=== PATIENT | female | born 1935 | race Caucasian/White ===

== ENCOUNTER 2017-04-11 06:14 | Inpatient (IN) | payer MEDICARE, OTHER ==
[~2017-04-11] VITALS: Ht 167.6 cm; Wt 78.9 kg
[~2017-04-11 06:14] MED LIST: ALBUTEROL2.5 MG/0.5 INH; AMITRIPTYLINE H10 M1 PO; ANUSOL-HC25 MG RECTAL; ARICEPT 5 MG TAB5 MG PO; ASPIR 8181 MG PO; ASPIRIN81 M2 PO; ATROVENT HFA14 GM INH; AVELOX400 MG PO; BENAZEPRIL HCL20 MG PO; BENAZEPRIL HCL40 MG PO; BENTYL 10 MG CA10 M1 PO; CALCIUM 500 +1 EAC5 PO; CALCIUM ASCORB500 MG PO; CALCIUM PO; CARDIZEM CD240 MG PO; CARVEDILOL12.5 MG PO; CARVEDILOL25 MG PO; CELEBREX 200 M200 M1 PO; CELEBREX400 MG PO; CELEXA10 MG PO; CELEXA20 MG PO; CENTRUM SILVER1 EAC4 PO; CLEOCIN HCL300 MG PO; COMBIVENT INH; CORTENEMA100 MG/60 RECTAL; DILAUDID 2 MG TA2 MG PO; DILAUDID 4 MG TA4 M1 PO; DILAUDID 4 MG TA4 MG PO; DUONEB 2.5-0.5 M3 ML INH; ENOXAPARIN40 MG/0.1 SUBQ; EVISTA PO; FOLIC ACID 1 MG1 MG PO; FOLIC ACID1 MG PO; FORTEO SUBQ; FORTICAL; GABAPENTIN300 MG PO; HYDROCHLOROTH12.5 M1 PO; HYDROCHLOROTHIA25 M2 PO; HYDROCODONE-AP1 EAC6 PO; HYDROXYZINE HCL25 M2 PO; KLOR-CON 1010 MEQ PO; LEVAQUIN 500 M500 M2 PO; LEVAQUIN 750 M750 MG PO; LIDOCAINE HCL 1% TOP; LOTENSIN40 MG PO; LOVASTAT40 PO; METAMUCIL1 EAC1 PO; MILK OF MA2400 MG/10 PO; MIRALAX17 GM PO; MS CONTIN15 MG PO; MULTIVITAMINS1 EAC7 PO; NAMENDA 10 MG T10 MG PO; NAMENDA PO; NAMENDA XR28 MG PO; NEURONTIN 300300 M1 PO; NEURONTIN 300M300 M2 PO; NITROFURANTOIN100 MG PO; ONDANSETRON HCL4 M2 PO; PACERONE 200 M200 M1 PO; PANTOPRAZOLE SO40 M1 PO; PERCOCET 5-3251 EACH PO; PRAVACHOL40 MG PO; PREDNISONE 10 M10 MG PO; PREVASTATIN; PROTONIX40 M1 PO; RANITIDINE HCL150 M1 PO; ROWASA4 GM/60 ML RECTAL; SENOKOT-S1 TA1 PO; TESSALON PERLE100 MG PO; TESSALON200 MG PO; TRAMADOL 50 MG50 MG PO; TUMS PO; TYLENOL EXTRA500 MG PO; TYLENOL325 MG PO; VITAMIN D-32000 UNIT PO; VITAMIN D1000 UNI1 PO; VITAMIN D2000 UNIT PO; VITAMIN D3400 UNIT PO; XARELTO15 MG PO; XARELTO20 MG PO; ZANTAC 150MG T150 MG PO; ZPAK PO
[2017-04-11 06:15] VITALS: BP 163/91
[2017-04-11 07:00] LABS: HEMATOCRIT 30.2 % (37.0-47.0); HEMOGLOBIN 9.9 gm/dL (12.0-15.0); MCH 28.9 pg (26.0-34.0); MCHC 32.6 g/dL (28.0-37.0); MCV 88.5 fL (80.0-100.0); MPV 8.6 fl. (7.2-11.1); NUCLEATED RBCS 0 /100WBC; PLATELET COUNT* 213 thou/uL (150-400); RBC 3.41 mil/uL (4.20-5.00); RDW-CV 14.7 % (10.5-14.5); WBC 19.8 thou/uL (4.0-11.0)
[2017-04-11 07:08] LABS: ANION GAP 6 mmol/L (7-16); BUN 24 mg/dL (7-18); CALCIUM 9.3 mg/dL (8.5-10.1); CHLORIDE 98 mmol/L (98-107); CO2 32 mmol/L (21-32); GLUCOSE 124 mg/dL (70-99); POTASSIUM 4.4 mmol/L (3.5-5.1); SODIUM 136 mmol/L (136-145)
[2017-04-11 07:15] LABS: ALBUMIN 3.3 g/dL (3.4-5.0); ALKALINE PHOSPHATASE 110 U/L (46-116); SGOT 20 U/L (15-37); SGPT 28 U/L (30-65); TOTAL BILIRUBIN 0.3 mg/dL (<0.1-1.0); TOTAL PROTEIN 6.6 g/dL (6.4-8.2); TROPONIN-I LEVEL <0.06 ng/mL (<0.06)
[2017-04-11 07:35] LABS: ABSOLUTE LYMPHOCYTES 0.6 thou/uL (0.8-5.3); ABSOLUTE MONOCYTES 0.6 thou/uL (0.0-1.2); ABSOLUTE NEUTROPHILS 18.6 thou/uL (1.6-8.1); METAMYELOCYTES 1 %; POLYCHROMASIA 1+
[2017-04-11 07:36] LABS: PLATELET ESTIMATE ADEQUATE
[2017-04-11 11:02] VITALS: BP 134/99
[2017-04-11 14:50] VITALS: BP 145/81
--- NOTE | 2017-04-11 16:00 | NUR ---
ASSUMED CARE OF PATIENT AT 1450 AFTER TRANSFERRED TO ROOM 107 FROM PACU S/P ORIF LEFT ANKLE. PATIENT IS AWAKE, ALERT, AND ORIENTED TO SELF, PLACE, AND SITUATION AT THIS TIME. DAUGHTERS AT BEDSIDE. ADMISSION DOCUMENTATION COMPLETED AND CHARTED. VITAL SIGNS STABLE. OXYGEN SATURATION WITHIN NORMAL LIMITS ON 3 LPM PER NASAL CANULA. PATIENT IS ON BEDREST AT THIS TIME. SCHUSTER CATHETER IN PLACE TO DEPENDENT DRAINAGE, DRAINING YELLOW URINE. CALL LIGHT IS WITHIN REACH AND EDUCATION ON HOW TO USE IT HAS BEEN GIVEN. BED ALARM IS ON. DENIES NEEDS AT THIS TIME. NURSING WILL CONTINUE TO MONITOR.
--- NOTE | 2017-04-11 17:08 | NUR ---
NO CHANGE IN PATIENT STATUS. HAVE NO GIVEN PRN MEDICATIONS AT THIS TIME. SCHUSTER INTACT. DENIES NEEDS AT THIS TIME. CALL LIGHT WITHIN REACH. NURSING WILL CONTINUE TO MONITOR.
[2017-04-11 20:20] VITALS: BP 127/79
[2017-04-12] VITALS (7 sets, daily range): BP systolic 130–153; BP diastolic 50–77
[2017-04-12 04:19] LABS: HEMATOCRIT 26.3 % (37.0-47.0); HEMOGLOBIN 8.1 gm/dL (12.0-15.0); MCH 27.3 pg (26.0-34.0); MCHC 30.8 g/dL (28.0-37.0); MCV 88.7 fL (80.0-100.0); MPV 9.1 fl. (7.2-11.1); RBC 2.97 mil/uL (4.20-5.00); WBC 17.2 thou/uL (4.0-11.0)
[2017-04-12 05:03] LABS: CALCIUM 8.5 mg/dL (8.5-10.1); CREATININE 1.1 mg/dL (0.6-1.3); MAGNESIUM 1.9 mg/dL (1.8-2.4)
--- NOTE | 2017-04-12 07:47 | NUR ---
PATIENT HAS RESTED THROUGHOUT THE NIGHT WITHOUT ANY COMPLAINTS. DOES NOT VERBALIZE PAIN. PATIENT IS ALERT TO SELF AND PLACE BUT IS CONFUSED AND FORGETFUL. PATIENT DOES HAVE HISTORY OF DEMENTIA. VSS ON 3L 02 VIA NASAL CANNULA. SCHUSTER TO DEPENDENT DRAINAGE WITH YELLOW URINE OUTPUT. SCHUSTER IS TO BE TAKEN OUT LATER TODAY. IV IN LEFT FOREARM-SL. FALL PRECAUTIONS IN PLACE. HOURLY ROUNDS MADE. WILL CONTINUE WITH PLAN OF CARE AND NURSING TO MONITOR.
--- NOTE | 2017-04-12 08:42 | NUR ---
ASSUMED CARE OF PT THIS AM AROUND 0700. REFER TO ASSESSMENT. PT NOTED TO HAVE AUDIBLE COARSE RESPIRATIONS THIS AM. PHYSICIAN NOTIFIED AND NEW ORDER OBTAINED FOR CHEST XRAY. IS PLACED AT BEDSIDE AND PT INSTRUCTED TO USE. DRESSING TO LLE C/D/I. NO OTHER CONCERNS AT THIS TIME. CLWR. WCTM.
[2017-04-12 10:36] LABS: URINE BILIRUBIN NEGATIVE (Negative); URINE BLOOD 2+ (Negative); URINE CLARITY CLEAR; URINE COLOR YELLOW; URINE GLUCOSE-RANDOM NEGATIVE (Negative); URINE KETONES NEGATIVE (Negative); URINE LEUKOCYTES-REFLEX 1+ (Negative); URINE NITRITE-REFLEX NEGATIVE (Negative); URINE PROTEIN NEGATIVE (Negative); URINE UROBILINOGEN 0.2 E.U./dl (0.2-1.0)
[2017-04-12 10:46] LABS: CASTS None Seen /LPF (None Seen); MUCUS 0-3 Light strn/LPF (None Seen); SQUAMOUS 0-3 Few /LPF (0-3); URINE RBC 3-10 Few /HPF (0-2); URINE WBC-REFLEX 6-15 Few /HPF (0-5)
[2017-04-12 10:47] LABS: CRYSTALS None Seen /LPF (None Seen)
--- NOTE | 2017-04-12 14:43 | NUR ---
CM ASSESSMENT: Pt is A&O. Resides at home with her dtr, Caryl. Pt is normally independent at home. Dtr does the cooking, cleaning and driving. Uses a walker for mobility. [facility] of [facility]. Hx of [facility] and [facility]. Pt's goal is to return home, but understands that she may need to go to skilled. Pt in agreement with CM speaking with dtr regarding disposition. Spoke with Caryl via phone. Dtr thinks that Pt will need skilled. Dtr's 1st choice is [facility], 2nd choice [facility]. Spoke with Karlo at [facility], anticipate that they will have an available bed on . Faxed referral.
--- NOTE | 2017-04-12 17:08 | NUR ---
PT PROGRESSING TOWARDS GOALS THIS SHIFT. PAIN MANAGED WITH ONE TAB PRN HYDROCODONE. CHEST XRAY OBTAINED FOR COARSE LUNG SOUNDS. NO OTHER CONCERNS AT THIS TIME. CLWR. WCTM.
--- NOTE | 2017-04-12 17:37 | EKG ---
[place] [address] ELECTROCARDIOGRAM REPORT Name: JUSTYN CASRTO Room: [address] ADM IN .R.#: [id number] Admission: 04/11/17 Attend Phys: Jacob Preciado MD Discharge: Date of : 37 Report #: [id number] THIS REPORT FOR: //name// [facility] ED Test Date: 2017-04-11 Test Time: 06:47:51 Pat Name: JUSTYN CASTRO Department: Room: [facility] Gender: F Media Reconciliation Specialist: MILI Rm : 1935 Requested By: Markus Herrera Order Number: [id number] MD: Fidel Harris Measurements Intervals [place] Rate: 79 P: 100 RI: 148 QRS: 38 QRSD: 113 T: 9 QT: 409 QTc: 469 Interpretive Statements Sinus rhythm Atrial premature complexes in couplets Incomplete right bundle branch block Nonspecific T abnormalities, lateral leads Compared to ECG 01/23/2017 01:39:50 T-wave abnormality now present Electronically Signed On 04-12-2017 17:36:55 XM1 TANK DRIVER by Fidel Harris [email or web address] <ELECTRONICALLY SIGNED> By: Fidel Harris MD, FACC 04/12/17 1736 0647 0647 Fidel Harris MD, FAC /EPI
--- NOTE | 2017-04-12 18:50 | NUR ---
PT NOTED TO HAVE SOME APHASIA AND CONFUSION THIS EVENING. IT IS KNOWN THAT PT HAS HX OF DEMENTIA. UNKNOWN IF PT HAS HX OF APHASIA. PHYSICIAN NOTIFIED AND MADE AWARE OF URINE CULTURE AND CXRAY THIS EVENING. PT STARTING ON IV ABTS. PT TO HAVE CT WITHOUT CONTRAST THIS EVENING. NO OTHER CONCERNS AT THIS TIME. CLWR. WCTM.
[2017-04-12 19:09] LABS: HEMATOCRIT 24.1 % (37.0-47.0); HEMOGLOBIN 7.8 gm/dL (12.0-15.0); MCH 28.6 pg (26.0-34.0); MCHC 32.4 g/dL (28.0-37.0); MCV 88.3 fL (80.0-100.0); MPV 8.6 fl. (7.2-11.1); RBC 2.73 mil/uL (4.20-5.00); WBC 18.1 thou/uL (4.0-11.0)
[2017-04-12 19:23] LABS: CALCIUM 8.6 mg/dL (8.5-10.1); POTASSIUM 5.8 mmol/L (3.5-5.1)
[2017-04-13 04:19] VITALS: BP 148/73
[2017-04-13 07:42] VITALS: BP 139/72
--- NOTE | 2017-04-13 07:54 | NUR ---
PATIENT ALERT TO SELF, CONFUSED. VITALS STABLE. ON 2L OF OXYGEN. LEFT WRIST IV, SALINE LOCKED. REPOSITIONED EVERY TWO HOURS. INCONINENT OF URINE. NO BOWEL MOVEMENT DURING MY SHIFT. SLEPT COMFORTABLY THROUGH THE NIGHT. BED ALARM IN USE. NURSING WILL CONTINUE TO MONITOR.
--- NOTE | 2017-04-13 10:05 | NUR ---
ASSUMED CARE OF PT AROUND 0700 THIS AM. REFER TO ASSESSMENT. PHYSICIAN NOTIFIED OF ELEVATED POTASSIUM LEVELS. NEW ORDERS TO DC LISINOPRIL. VSS. ANTICIPATE PLACEMENT IN [facility] TOMORROW. PHYSICAL THERAPY AND NURSING STAFF ATTEMPTED TO GET PT UP TO CHAIR. PT NONCOMPLIANT WITH NONWEIGHT BEARING STATUS. NONCOMPLIANT WITH SITTING UP IN CHAIR. ATTEMPTED TO EDUCATE PT TO SIT UP WITH EATING/ DRINKING/ TAKING MEDICATIONS. ELEVATED HOB WITH BREAKFAST THIS AM AND PT REFUSED TO EAT AND DEMANDING HOB BE LOWERED. NO OTHER CONCERNS AT THIS TIME. CLWR. WCTM.
--- NOTE | 2017-04-13 12:00 | NUR ---
DAUGHTER,SHUN,CALLED CM LATE YESTERDAY AFTERNOON,ASKING THAT A REFERRAL BE MADE TO [facility]. FAXED REFERRAL TO [facility]. LEFT MESSAGE FOR HER TO RETURN MY CALL. NOT READY FOR DISCHARGE TODAY.
[2017-04-13 15:00] VITALS: BP 108/81
--- NOTE | 2017-04-13 16:00 | NUR ---
[facility] STATED THEY CAN ACCEPT PT.AT DISCHARGE. FAXED OT AND PT ASSESSMENTS TO HER [phone]. NOTIFIED DAUGHTER SHUN. SHE SAID [facility] WOULD BE HER SECOND CHOICE. EXPLAINED [facility] MAY NOT HAVE BED AVAILABILITY BUT WHEN READY FOR DISCHARGE CM CAN CALL [facility] TO CHECK.
--- NOTE | 2017-04-13 16:20 | NUR ---
PT PROGRESSING WELL TOWARDS GOALS THIS SHIFT. NO C/O PAIN. ANTICIPATE DISCHARGE TO [facility] TOMORROW. PT HAS FAMILY AT BEDSIDE AT THIS TIME. NO OTHER CONCERNS AT THIS TIME. CLWR. WCTM.
[2017-04-13 19:45] VITALS: BP 127/57
--- NOTE | 2017-04-13 21:35 | NUR ---
PHYSICIAN NOTIFIED ABOUT PATIENT'S IRREGULAR HEART RATE. RANGING FROM 80S TO 120S. OTHER VITALS STABLE. PATIENT DOES NOT SEEM TO BE IN ANY DISCOMFORT AND DENIES CHEST PAIN. IN REPORT I WAS TOLD THAT PATIENT HAS A HISTORY OF AFIB THAT IS NOT LISTED IN HISTORY. PHYSICIAN INFORMED. PATIENT HAS DEMENTIA AND IS UNABLE TO CONFIRM THIS INFORMATION. LABS ORDERED FOR THE MORNING. PHYSICIAN STATES TO OBSERVE OVERNIGHT. NO OTHER ORDERS RECEIVED.
[2017-04-14 00:07] VITALS: BP 124/55
[2017-04-14 03:15] VITALS: BP 140/77
--- NOTE | 2017-04-14 06:17 | NUR ---
PATIENT ALERT AND ORIENTED X 2. INCONTINENT OF URINE DURING THE NIGHT. REPOSITONED EVERY TWO HOURS. TYLENOL GIVEN FOR PAIN. LEFT ANKLE SPLINT AND DRESSING IN PLACE. LLE ELEVATED ON PILLOW. NO COMBATIVE BEHAVIOR DURING THE NIGHT. SLEPT COMFORTABLY. FREQUENT ROUNDS. BED ALARM IN USE. NURSING WILL CONTINUE TO MONITOR.
[2017-04-14 07:27] LABS: HEMATOCRIT 25.7 % (37.0-47.0); HEMOGLOBIN 8.3 gm/dL (12.0-15.0); MCH 28.5 pg (26.0-34.0); MCHC 32.4 g/dL (28.0-37.0); MCV 87.9 fL (80.0-100.0); MPV 8.8 fl. (7.2-11.1); RBC 2.92 mil/uL (4.20-5.00); WBC 14.4 thou/uL (4.0-11.0)
[2017-04-14 07:39] LABS: CALCIUM 8.8 mg/dL (8.5-10.1); CREATININE 0.9 mg/dL (0.6-1.3); MAGNESIUM 1.9 mg/dL (1.8-2.4); POTASSIUM 4.1 mmol/L (3.5-5.1)
[2017-04-14 08:30] VITALS: BP 93/47
[2017-04-14 10:15] VITALS: BP 93/47
[2017-04-14] MEDS ORDERED: XARELTO10 MG PO (10:21)
[2017-04-14] MEDS ORDERED: CEFUROXIME500 MG PO (10:24)
[2017-04-14] MEDS ORDERED: HYDROCODONE-AP1 EAC6 PO (10:39)
--- NOTE | 2017-04-14 13:56 | OP ---
[address] [address] OPERATIVE REPORT Name: JUSTYN CASTRO Room: [address] IN [facility]#: [id number] Admission: 04/11/17 Attend Phys: Jacob Preciado MD Discharge: Date of : 37 Report #: [id number] THIS REPORT FOR: //name// CC: Jacob Buckner DATE OF SERVICE: 04/11/2017 FAMILY PHYSICIAN: Servando Buckner DO PREOPERATIVE DIAGNOSIS: Bimalleolar fracture, left ankle. POSTOPERATIVE DIAGNOSES: 1. Closed bimalleolar fracture, left ankle. 2. Diastasis of syndesmotic ligament, left ankle. OPERATION PERFORMED: 1. Open reduction and internal fixation of bimalleolar fracture, left ankle. 2. Insertion of transmalleolar screw for diastasis of syndesmotic ligament, left ankle. Physician directed fluoroscopy less than [address] Fidel Proctor. SURGEON: Fidel Proctor DO SORTER PRICER: Govind Culver. SECOND UTILITY TELLER: Brennan Reyes. ANESTHESIA: General. GROSS PATHOLOGY: This patient suffered a bimalleolar fracture of the left ankle. Displacement was noted. There was evidence of a diastasis of syndesmotic ligament. The patient does have some erythema in the medial aspect of the left ankle, not in the area of the incision. She does have evidence of stasis dermatitis to both lower extremities. IMPLANTS UTILIZED: [place] distal fibula plating system and 4.0 times 1 cancellous screw medial malleolus, transmalleolar screw, 3.5 cortical screw locking and 3.5 cortical screws in the fibular plate. The C-arm was used intermittently throughout surgery, it was under the direction of myself during the surgery for less than 1 hour of utilization. PROCEDURE: The patient was brought to the operating room where general anesthetic was administered, preoperative antibiotics were [place] [address] OPERATIVE REPORT Name: JUSTYN CASTRO Room: [address] IN [facility]#: [id number] Admission: 04/11/17 Attend Phys: Jacob Preciado MD Discharge: Date of : 37 Report #: [id number] 600 mg. A Hibiclens scrub and a ChloraPrep, prep were done to the left leg. The patient was draped in a sterile manner. An incision was then made on the lateral aspect of the left ankle distal fibula approximately 2-1/2 inches in length. It was carried down through the skin and subcuticular material by sharp dissection. By sharp and blunt dissection, the fracture sites identified. 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 The fracture was reduced, held in place, the plate was placed in position and held in place with the K-wire. The C-arm was used intermittently and was noted to be in good position of the plate and the fracture site. The fracture was then secured with locking screws distally and the 3.5 cortical screws proximally. Attention was turned to the medial malleolus where an incision was made approximately 1.5 cm in length, it was carried down through the skin to the fracture site, which was reduced, held in reduced position. The K-wire was inserted into the medial malleolus, viewed, noted to be in good position. The outer cortex was reamed and a cannulated screw was placed over the guidewire to the appropriate depth. Again, C-arm was utilized and these K-wires were removed. There was evidence of a diastasis, positive Cotton test, the ankle mortise was held in reduced position. The drill was used to drill across the fibula to the tibia. Measurements were taken with 3.5 cortical, 55 mm was then inserted across the ankle mortise reducing the diastasis. Final C-arm visualization revealed acceptable position of the fracture sites and implant devices. The deep tissues closed with hard Vicryl suture, subQ 2-0 Vicryl and yeimy on the skin. The areas were anesthetized with Marcaine 0.5% plain, approximately 30 mL. The blood loss approximately 30 mL. The needle and sponge count reported as correct. The wounds were thoroughly irrigated throughout the entire procedure. Ilya Rodgers dressing was applied after the sterile dressings were applied. Posterior new splint was applied. The patient was transferred to recovery room in good condition. <ELECTRONICALLY SIGNED> By: Fidel Proctor DO 04/14/17 1356 1341 [id number] Proctor DO /nt
== END 2017-04-14 14:20 | DRG 492 ==
LOC: M.ERS 06:14 → M.TBA-ER 08:38 → M.ORTHSURG 14:46
PROVIDERS: Emergency Medicine Emergency Medical Services; Internal Medicine; ADMIT Internal Medicine
PROC: 0QSH04Z Reposition Left Tibia with Internal Fixation Device, Open Approach (ICD-10-PCS; principal; 2017-04-11)
DX: S82.852A Displaced trimalleolar fracture of left lower leg, initial encounter for closed fracture (principal); G92 Toxic encephalopathy; J96.11 Chronic respiratory failure with hypoxia; I50.32 Chronic diastolic (congestive) heart failure; N39.0 Urinary tract infection, site not specified; J98.11 Atelectasis; S82.842A Displaced bimalleolar fracture of left lower leg, initial encounter for closed fracture; J44.9 Chronic obstructive pulmonary disease, unspecified; F03.90 Unspecified dementia, unspecified severity, without behavioral disturbance, psychotic disturbance, mood disturbance, and anxiety; K21.9 Gastro-esophageal reflux disease without esophagitis; Z96.642 Presence of left artificial hip joint; S93.05XA Dislocation of left ankle joint, initial encounter; I48.91 Unspecified atrial fibrillation; I35.0 Nonrheumatic aortic (valve) stenosis; D72.829 Elevated white blood cell count, unspecified; I11.0 Hypertensive heart disease with heart failure; I35.1 Nonrheumatic aortic (valve) insufficiency; Z98.49 Cataract extraction status, unspecified eye; Z87.891 Personal history of nicotine dependence; Z88.6 Allergy status to analgesic agent; Z88.1 Allergy status to other antibiotic agents; Z79.899 Other long term (current) drug therapy; Z88.2 Allergy status to sulfonamides; Z79.82 Long term (current) use of aspirin; W01.0XXA Fall on same level from slipping, tripping and stumbling without subsequent striking against object, initial encounter; Y93.89 Activity, other specified; Y92.89 Other specified places as the place of occurrence of the external cause; Y99.8 Other external cause status

== ENCOUNTER 2017-04-27 11:03 | Inpatient (IN) | payer MEDICARE, OTHER ==
[~2017-04-27] VITALS: Ht 170.2 cm; Wt 68.0 kg
--- NOTE | ~2017-04-27 | PROC ---
[address] [address] PROCEDURE REPORT Name: JUSTYN CASTRO Room: [address] IN ..#: [id number] Admission: 04/27/17 Attend Phys: Alverto Buchanan MD Discharge: Date of : 37 Report #: [id number] THIS REPORT FOR: //name// For GI report, please see the Provation report in Perceptive 7 content. By: 0655Medical Records Staff JULIANA /ARRON
[2017-04-27 11:03] VITALS: BP 138/70
[~2017-04-27 11:03] MED LIST changes: +CEFUROXIME500 MG PO; +XARELTO10 MG PO
[2017-04-27] MEDS ORDERED: BISACODYL SUPP10 MG RECTAL (11:37)
[2017-04-27] MEDS ORDERED: VITAMIN D3400 UNIT PO (11:38)
[2017-04-27 11:45] LABS: APTT 23.6 Seconds (25.0-31.3); PROTIME 10.1 Seconds (9.20-11.50)
[2017-04-27 11:46] LABS: ANION GAP 4 mmol/L (7-16); BUN 14 mg/dL (7-18); CALCIUM 8.5 mg/dL (8.5-10.1); CHLORIDE 101 mmol/L (98-107); CO2 32 mmol/L (21-32); CREATININE 0.9 mg/dL (0.6-1.3); GLUCOSE 137 mg/dL (70-99); POTASSIUM 4.3 mmol/L (3.5-5.1); SODIUM 137 mmol/L (136-145)
[2017-04-27 11:48] LABS: ABSOLUTE BASOPHILS 0.1 thou/uL (0.0-0.2); ABSOLUTE LYMPHOCYTES 0.5 thou/uL (0.8-5.3); ABSOLUTE MONOCYTES 0.9 thou/uL (0.0-1.2); ABSOLUTE NEUTROPHILS 10.3 thou/uL (1.6-8.1); BASOPHILS 0.6 %; EOSINOPHILS 0.2 %; HEMATOCRIT 23.3 % (37.0-47.0); HEMOGLOBIN 7.3 gm/dL (12.0-15.0); LYMPHOCYTES 4.4 %; MCH 27.4 pg (26.0-34.0); MCHC 31.3 g/dL (28.0-37.0); MCV 87.5 fL (80.0-100.0); MONOCYTES 7.5 %; NUCLEATED RBCS 0 /100WBC; POLYS 87.3 %; RBC 2.66 mil/uL (4.20-5.00); RDW-CV 15.7 % (10.5-14.5); WBC 11.9 thou/uL (4.0-11.0)
[2017-04-27 11:54] LABS: INFLUENZA A ANTIGEN None Detected (None Detect); INFLUENZA B ANTIGEN None Detected (None Detect)
[2017-04-27 12:04] LABS: ALBUMIN 2.8 g/dL (3.4-5.0); ALKALINE PHOSPHATASE 182 U/L (46-116); LIPASE 74 U/L (73-393); MAGNESIUM 1.9 mg/dL (1.8-2.4); NT-PRO BRAIN NAT PEPTIDE 497 pg/mL (<300); SGOT 19 U/L (15-37); SGPT 22 U/L (30-65); TOTAL BILIRUBIN 0.3 mg/dL (<0.1-1.0); TOTAL PROTEIN 6.1 g/dL (6.4-8.2)
[2017-04-27 12:09] LABS: BE 3.2 mmol/L (-2 to +3); HCO3 28.5 mmol/L (22.0-26.0); PCO2 48.1 mmHg (35.0-45.0); PO2 91.1 mmHg (75.0-100.0)
[2017-04-27 12:12] LABS: CLUMPED PLTS FEW; PLATELET ESTIMATE ADEQUATE
[2017-04-27 12:13] LABS: ANISOCYTOSIS 1+; HYPOCHROMASIA 2+; LARGE PLATELETS OCCASIONAL
--- NOTE | 2017-04-27 12:13 | NUR ---
CALLED [facility] CONTACT NUMBERS LEFT MESSAGE TO CONTACT ED
[2017-04-27 12:15] LABS: MPV 9.3 fl. (7.2-11.1); PLATELET COUNT* 249 thou/uL (150-400)
[2017-04-27 12:18] LABS: TROPONIN-I LEVEL <0.06 ng/mL (<0.06)
--- NOTE | 2017-04-27 12:20 | NUR ---
CONTACTED BY SERENE SCHILLING VERIFIED CONSENT TO TREAT WITH RACHELLE AZEVEDOSALES AND OPERATIONS TRAINEE
--- NOTE | 2017-04-27 12:34 | NUR ---
SCATTERED SKIN TEARS NOTED ON ARMS AND LEGS IN DIFFERENT HEALING STAGES. FRESH SKIN TEAR ON R THIGHT UPON ARRIVAL NOTED.
--- NOTE | 2017-04-27 12:54 | NUR ---
PT TO COMMODE UNABLE TO URINATE
[2017-04-27 13:34] VITALS: BP 139/60
[2017-04-27 14:00] VITALS: BP 134/52
--- NOTE | 2017-04-27 14:26 | EKG ---
[place] [address] ELECTROCARDIOGRAM REPORT Name: JUSTYN CASTRO Room: [address] ADM IN [facility]#: [id number] Admission: 04/27/17 Attend Phys: Alverto Buchanan MD Discharge: Date of : 37 Report #: [id number] THIS REPORT FOR: //name// [facility] ED Test Date: 2017-04-27 Test Time: 11:14:17 Pat Name: JUSTYN CASTRO Department: Room: [facility] Gender: F Park Interpretive Specialist: Sujey MANLEY : 1935 Requested By: Sylvain Morales Order Number: [id number] MD: Gabe Turner Measurements Intervals [place] Rate: 82 P: 74 WV: 135 QRS: 90 QRSD: 109 T: 9 QT: 361 QTc: 422 Interpretive Statements Sinus rhythm Atrial premature complexes Borderline low voltage, extremity leads incomplete RBBB Compared to ECG 04/11/2017 06:47:51 no change Electronically Signed On 04-27-2017 14:26:20 GLOBAL PRESIDENT by Gabe Turner [email or web address] <ELECTRONICALLY SIGNED> By: Gabe Turner MD, FACC 04/27/17 1426 1114 1114 Gabe Turner MD, [facility] /EPI
--- NOTE | 2017-04-27 17:00 | NUR ---
VSS, ASSUMED CARE IN THE AM, ASSESSMENT PERFORMED AND CHARTED FALL PRECAUTIONS IN PLACE AND CALL LIGHT IN REACH, PT IS CONFUSED AND IMPULSIVE, INCONT AND ON 2L NC, PT LEFT ANKLE IS IN BOOT FROM FRACTURE. PT IS TRACING SR ARRTH ON MONITOR, AND STATES PAIN IN HER BACK, PT GOAL IS TO IMPROVE BREATHING. HOURLY ROUNDS COMPLETED.
[2017-04-27 19:40] VITALS: BP 126/55
[2017-04-28 00:01] VITALS: BP 161/81
[2017-04-28 04:00] VITALS: BP 156/90
--- NOTE | 2017-04-28 05:20 | NUR ---
A&O X4 CALM COOPERITVE. PT CONFUSED AT TIMES. PT D/C IV NEW IV IN RIGHT FOREARM SL. PT REPORTS OF LOWER BACK PAIN, GIVEN PAIN MEDICATION WITH RELIEF. Q2 TURNS. SR ON THE MONITOR WITH PAC AND PAUSES. 2L O2 NC. VITALS WNL. FALL PRECAUTIONS IN PLACE. HOURLY ROUNDING FOR SAFETY
[2017-04-28 05:45] LABS: CALCIUM 8.5 mg/dL (8.5-10.1); CREATININE 0.9 mg/dL (0.6-1.3); HEMATOCRIT 21.7 % (37.0-47.0); MCH 27.4 pg (26.0-34.0); MCHC 31.5 g/dL (28.0-37.0); MCV 86.9 fL (80.0-100.0); MPV 8.9 fl. (7.2-11.1); NUCLEATED RBCS 0 /100WBC; PLATELET COUNT* 259 thou/uL (150-400); POTASSIUM 4.5 mmol/L (3.5-5.1); RBC 2.49 mil/uL (4.20-5.00); RDW-CV 15.7 % (10.5-14.5); WBC 6.6 thou/uL (4.0-11.0)
[2017-04-28 05:48] LABS: HEMOGLOBIN 6.8 gm/dL (12.0-15.0)
[2017-04-28 06:30] LABS: ABSOLUTE LYMPHOCYTES 0.1 thou/uL (0.8-5.3); ABSOLUTE MONOCYTES 0.2 thou/uL (0.0-1.2); ABSOLUTE NEUTROPHILS 6.3 thou/uL (1.6-8.1); PLATELET ESTIMATE ADEQUATE
[2017-04-28 09:00] VITALS: BP 148/71
--- NOTE | 2017-04-28 09:00 | NUR ---
VSS, ASSUMED CARE IN THE AM, ASSESSMENT PERFORMED AND CHARTED, FALL PRECAUTIONS IN PLACE AND CALL LIGHT IN REACH, PT IS ON 2L NC AND UP WITH ONE RO BSC, PT HAS RIGHT SURGERY BOOT ON RIGTH FOOT FOR ANKLE FRACTURE, PT IS ON 2L NC AND IS CONFUSED AND TRACING SR ARRTH ON THE MONITOR, PT HAS PAIN ALL OVER HER BODY AND RATE 6-7 ON 0-10 PAIN, PT GOAL IS TO HAVE BM AND IS UP TO CHAIR, PT LAYS IN BED A LOT, NOT WANTING TO SIT UP FOR LONG PERIODS.
--- NOTE | 2017-04-28 10:39 | NUR ---
CM ASSESSMENT: Pt known to this CM from previous hospital stay, Pt was recently dc to [facility] on 04/13/17. Goal is for Pt to return to [facility] at dc, confirmed that Pt can return with [facility]. Pt is A&O. Normally resides at home wih her dtr. Independent with ADLs, dtr does the majority of the cooking and cleaning and all of the driving. Pt has a walker and wc at home that she can use. Pt wears home o2. Hx of [facility]. Hx of SNF at [facility] and [facility]. CM following for dc needs.
[2017-04-28 11:34] VITALS: BP 143/54
[2017-04-28 13:45] VITALS: BP 154/77; BP 158/82; BP 161/79; BP 164/80
--- NOTE | 2017-04-28 18:46 | NUR ---
VSS, PT IS PROGRESSING TOWARDS GOAL, PT HAS RECIVED ONE UNIT BLOOD, PT IS ON 2L NC AND UP WITH ONE TRACING SR ON THE MONITOR, PT IS CONFUSED AND DENIES ANY PAIN, HOURLY ROUNDS COMPLETED AND WILL FOLLOW WITH PLAN OF CARE.
[2017-04-28 19:40] VITALS: BP 145/70
[2017-04-28 20:26] LABS: HEMATOCRIT 28.1 % (37.0-47.0); HEMOGLOBIN 8.9 gm/dL (12.0-15.0)
[2017-04-29] VITALS: BP 161/52
[2017-04-29 04:00] VITALS: BP 138/67
[2017-04-29 05:36] LABS: ABSOLUTE LYMPHOCYTES 0.3 thou/uL (0.8-5.3); ABSOLUTE MONOCYTES 0.8 thou/uL (0.0-1.2); ABSOLUTE NEUTROPHILS 13.3 thou/uL (1.6-8.1); BASOPHILS 0.1 %; HEMOGLOBIN 8.5 gm/dL (12.0-15.0); LYMPHOCYTES 1.9 %; MCH 27.8 pg (26.0-34.0); MCHC 31.7 g/dL (28.0-37.0); MCV 87.8 fL (80.0-100.0); MONOCYTES 5.6 %; MPV 8.9 fl. (7.2-11.1); NUCLEATED RBCS 0 /100WBC; PLATELET COUNT* 272 thou/uL (150-400); POLYS 92.4 %; RBC 3.07 mil/uL (4.20-5.00); RDW-CV 15.5 % (10.5-14.5); WBC 14.4 thou/uL (4.0-11.0)
[2017-04-29 05:55] LABS: ALBUMIN 3.1 g/dL (3.4-5.0); CREATININE 0.8 mg/dL (0.6-1.3); POTASSIUM 4.7 mmol/L (3.5-5.1); TOTAL BILIRUBIN 0.3 mg/dL (<0.1-1.0); TOTAL PROTEIN 6.1 g/dL (6.4-8.2)
--- NOTE | 2017-04-29 06:46 | NUR ---
A&O X4 IMPULSIVE, PT CONVERTED TO AFIB AROUND 0330, PT WAS AFIB RVR, NOTIFIED CARITZEM DRIP ORDERED. PT HR HAS SHOW IMPROVEMENT. PT HAS HAD SMALL BM, STOMACH STILL DISTENDED. PT REPORTS GELLER, WITH INC HR. CONSTIANT O2 MONITORING. BP, TEMP, O2 WNL. TACKYPNEA AT TIMES. 3L O2. X1 ASSIST. FALL PRECAUTIONS IN PLACE. HOURLY ROUNDING FOR SAFETY.
[2017-04-29 08:00] VITALS: BP 133/78
--- NOTE | 2017-04-29 08:00 | NUR ---
VSS, ASSUMED CARE OF PT IN THE AM, ASSESSMENT PERFOMRED AND CHARTED, FALL PRECAUTIONS IN PLACE AND CALL LIGHT IN REACH, PT IS UP WITH ONE AND NO SALINAS BARRING ON RIGHT FOOT, PT HAS PAIN IN LOWER BACK AND IS ON 2L NC AND IS CONFUED, SHE IS AFIB ON THE MONITOR AND HAS CARDIEM DRIP RUNNING, WILL FOLLOW WITH WORKING WITH PT AND LOWER HR,
--- NOTE | 2017-04-29 09:50 | NUR ---
Faxed referral to Karlo at [facility], they are able to accept Pt back over the weekend if ready to dc. When you call to set up transfer, ask which number they want the orders faxed to. p:[phone]
[2017-04-29 11:59] VITALS: BP 148/81
--- NOTE | 2017-04-29 13:17 | EKG ---
[place] [address] ELECTROCARDIOGRAM REPORT Name: JUSTYN CASTRO Room: [address] ADM IN [facility]#: [id number] Admission: 04/27/17 Attend Phys: Alverto Buchanan MD Discharge: Date of : 37 Report #: [id number] THIS REPORT FOR: //name// [facility] Test Date: 2017-04-29 Test Time: 03:57:23 Pat Name: JUSTYN CASTRO Department: Room: [address] Gender: F Cab Driver: BENNYHEDTAMI : 1935 Requested By: Alverto Buchanan Order Number: [id number] MD: Gabe Turner Measurements Intervals [place] Rate: 159 P: ME: QRS: 68 QRSD: 111 T: 8 QT: 301 QTc: 490 Interpretive Statements Atrial fibrillation with rapid V-rate Low voltage, precordial leads RBBB Compared to ECG 04/27/2017 11:14:17 Sinus rhythm no longer present Electronically Signed On 04-29-2017 13:17:00 DRY CLEANING COUNTER CLERK by Gabe Turner [email or web address] <ELECTRONICALLY SIGNED> By: Gabe Turner MD, FAC 04/29/17 1317 0357 0357 Gabe Turner MD, [facility] /EPI
[2017-04-29 16:11] VITALS: BP 119/72
--- NOTE | 2017-04-29 16:54 | NUR ---
VSS, PT IS PROGRESSING TOWARDS GOAL, PT IS ON 2L NC AND IS TRACING AFIB ON THE MONITOR BUT OFF CARDIZEM DRIP AND HR IS IS CONTROLED, PT HAS WORKED WITH PT AND OT, PT WAS UP TO CHAIR AND TO BSC, PT HAS PAIN IN HER LOWER BACK, PT IS CONFUSED AND IS IN BED WITH ALL FOUR RAILS UP AND BED ALARM SET WITH CALL LIGHT IN REACH, WILL FOLLOW WITH PLAN OF CARE, HOURLY ROUNDS COMPLETED.
--- NOTE | 2017-04-29 17:08 | 2DMMODE ---
[place] [address] 2 D/M-MODE ECHOCARDIOGRAM Name: JUSTYN CASTRO Room: [address] IN [facility]#: [id number] Admission: 04/27/17 Attend Phys: Alverto Buchanan, Discharge: Date of : 37 Date of Service: 04/29/17 1708 Report #: [id number] THIS REPORT FOR: //name// APPROVED REPORT Study performed: 04/29/2017 14:42:50 EXAM: Limited 2D Echocardiogram Patient Location: In-Patient Room #: 218 Status: routine BSA: 1.89 HR: 120 bpm BP: 148/81 mmHg Rhythm: Atrial Fibrillation Other Information Study Quality: Good Indications Atrial Fibrillation Dyspnea 2D Dimensions LVEF(%): 73.28 (>50%) IVSd: 10.75 (7-11mm) LVDd: 49.72 mm PWd: 8.96 (7-11mm) LVDs: 28.62 (25-40mm) Aortic Root: 32.46 mm Crum's LVEF: 73.28 % Left Ventricle The left ventricle is normal size. Regional wall motion is not well visualized but grossly normal. Moderate concentric left ventricular hypertrophy. The left ventricular systolic function is normal. The left ventricular ejection fraction is within the normal range. LVEF is 55-60%. Right Ventricle The right ventricle is normal size. The right ventricular systolic function is normal. Atria The left atrium size is normal. The right atrium size is normal. [address] [address] 2 D/M-MODE ECHOCARDIOGRAM Name: JUSTYN CASTRO Room: [address]#: [id number] Admission: 04/27/17 Attend Phys: Alverto Buchanan, Discharge: Date of : 37 Date of Service: 04/29/17 1708 Report #: [id number] Aortic Valve The aortic valve is normal in structure. Aortic valve is not well visualized. No hemodynamically significant valvular aortic stenosis. Mitral Valve The mitral valve is normal in structure. Tricuspid Valve The tricuspid valve is normal in structure. Pulmonic Valve The pulmonary valve is normal in structure. Great Vessels The aortic root is normal in size. IVC is normal in size and collapses >50% with inspiration. Pericardium There is no pericardial effusion. There is no pleural effusion. <Conclusion> Moderate concentric left ventricular hypertrophy. LVEF is 55-60%. Regional wall motion is not well visualized but grossly normal. No hemodynamically significant valvular aortic stenosis. The aortic valve is normal in structure. Aortic valve is not well visualized. <ELECTRONICALLY SIGNED> By: Maurice Grewal MD, FACC 04/29/17 170 07 07 Maurice Grewal MD, [facility] /INF
[2017-04-29 20:00] VITALS: BP 114/68
[2017-04-30 00:22] VITALS: BP 126/71
[2017-04-30 04:26] VITALS: BP 121/80
--- NOTE | 2017-04-30 04:29 | NUR ---
ASSUMED CARE OF PATIENT AT 1900 THE PATIENT REMAINS IN AFIB ON THE MONITOR O2 SAT MAINTAINED ON NC 3L CONTINUES TO BE UP WITH ASSIST OF 1 TO THE BSC NOTED EXTREME SOA DURING TRANSFER PROVIDED BEDPAN TO FACILITATE ENERGY CONSERVATION ROUTINE ET PRN REGIMEN CONTINUES TO BE EFFECTIVE FOR SX MANAGEMENT ORDERS PLACED FOR HEAT PACK FOR PAIN IN RIGHT SHOULDER SAFETY INTERVENTIONS CONTINUE BED LOWERED WHEELS LOCKED CALL LIGHT IN REACH SIDE RAILS UP REPORT TO BE GIVEN TO ONCMAYRA AZEVEDO
[2017-04-30 09:30] VITALS: BP 162/98
[2017-04-30 12:46] VITALS: BP 121/61
[2017-04-30 16:00] VITALS: BP 132/75
--- NOTE | 2017-04-30 19:38 | NUR ---
assumed pt care at 0730, full assesment done as charted. pt oriented to self and situation at times but is very confused. she states that she is seeing "black dots all over" and pt was found talking to self, she states she was talking to her daughter who was not in the room at the time. pt attempted to get up to chair this am, became very soa, got to the chair but was back to bed at lunch time. pt picks at scabs and had 3 bleeding scabs to right arm. pictures taken, arm wrapped with vasoline gauze and curlex. pts left foot in boot, skin assesed, yeimy in tact to outer aspect of foot. pt turned q2 hr. fall preatuioins in place, pts vss, remains afib on the monitor in the 80's.spoke to pts daughter about pt being dnr, recieved order this evening from dr smith for pt to be dnr. report given to ROBERTO CARLOS Garduno.
[2017-04-30 20:00] VITALS: BP 137/82
[2017-05-01] VITALS: BP 141/84
--- NOTE | 2017-05-01 03:11 | NUR ---
RESTING THROUGHOUT NIGHT. CONFUSED PER BASELINE. USES BEDPAN, WITH OCCASIONAL INCONT. TURN EVERY 2 HOURS. CONT. TO MONITOR RESP STATUS. A-FIB ON MONITOR. BED IN LOW POSITION, CALL LIGHT IN REACH, BED ALARM ON. NO SIGN OF DISTRESS CONT. TO MONITOR.
[2017-05-01 04:00] VITALS: BP 151/73
[2017-05-01 05:28] LABS: HEMOGLOBIN 8.9 gm/dL (12.0-15.0); MCH 28.1 pg (26.0-34.0); MCHC 31.8 g/dL (28.0-37.0); MCV 88.2 fL (80.0-100.0); MPV 9.1 fl. (7.2-11.1); NUCLEATED RBCS 0 /100WBC; PLATELET COUNT* 259 thou/uL (150-400); RBC 3.17 mil/uL (4.20-5.00); WBC 11.7 thou/uL (4.0-11.0)
[2017-05-01 05:54] LABS: ALBUMIN 2.8 g/dL (3.4-5.0); CALCIUM 8.9 mg/dL (8.5-10.1); CREATININE 0.9 mg/dL (0.6-1.3); MAGNESIUM 2.2 mg/dL (1.8-2.4); POTASSIUM 4.4 mmol/L (3.5-5.1); TOTAL BILIRUBIN 0.2 mg/dL (<0.1-1.0); TOTAL PROTEIN 6.1 g/dL (6.4-8.2)
--- NOTE | 2017-05-01 06:56 | NUR ---
PATIENT DESATTING, PLACED ON HIGH FLOW 02, LOW 90S NOW. CONT. TO MONITOR.
[2017-05-01 06:59] LABS: ABSOLUTE LYMPHOCYTES 0.6 thou/uL (0.8-5.3); ABSOLUTE MONOCYTES 0.6 thou/uL (0.0-1.2); ABSOLUTE NEUTROPHILS 10.5 thou/uL (1.6-8.1); ATYPICAL LYMPHS 2 %; PLATELET ESTIMATE ADEQUATE
[2017-05-01 08:00] VITALS: BP 146/70
--- NOTE | 2017-05-01 12:07 | NUR ---
ASSUMED PT CARE AT 0730, FULL ASSESMENT DONE CHARTED. PT ORIENTED TO SELF, SHE IS VERY CONFUSED, SEEING "BUGS" IN HER ROOM. PT MOANS AND YELLS OUT "NURSE OFTEN. PT C/O SOME PAIN IN LOW BACK AND LEGS. MEDS GIVEN PER MAR, PT PULLED IV OUT, PULLS AT GAUZE COVERING SKIN WERE PT PICKS. PT ABLE TO FEED SELF THIS AM. FALL PRECAUTIONS IN PLACE, PT USES CALL LIGHT BUT IS NOT ALWAYS ABLE TO VERBALIZED NEEDS. WILL CONTINUE TO MONITOR CLOSLY,.
[2017-05-01 12:21] VITALS: BP 141/84
[2017-05-01 16:37] VITALS: BP 164/90
--- NOTE | 2017-05-01 18:20 | NUR ---
PT DID BETTER THIS EVENING. SHE IS NOT FIDGETY, BUT BECAME UPSET WHEN RN SAT HER UP TO TAKE MEDS, PT YELLED AND PULLED AT RNS SHIRT. PT EDUCATED WHY SHE IS SAT UP FOR PILLS AND PT CALMED DOWN. PT REMAINS AFIB ON THE MONIOTOR. VSS, MEDS GIVEN PER MAR. FALL PRECATUIONS MAINTAINED. WILL CONTINUE TO MONITOR.
[2017-05-01 20:00] VITALS: BP 119/64
[2017-05-02] VITALS (7 sets, daily range): BP systolic 113–155; BP diastolic 47–88
--- NOTE | 2017-05-02 03:18 | NUR ---
PATIENT HAS BEEN RESTLESS, AND TAKING OXYGEN OFF ALL NIGHT. RESP THERAPY CALL AND PLACED ON NON-REBREATHER. STATS IN LOW 90S. CHARGE NURSE NOTIFIED. CONSULT FOR CASE MANAGEMENT IN AM FOR POSSIBLE HOSPICE CONSULT IF OK WITH FAMILY. PATIENT IS FROM [facility]. IV PULLED OUT. XANAX GIVEN WILL REATTEMPT IV PLACEMENT ONCE PATIENT'S ANXIETY SUBSIDES. WILL CONT. TO TURN AND CHANGE EVERY 2 HOURS. PATIENT IS CONFUSED AND INCONT. OF BOWEL AND BLADDER. PAIN MEDS ORDERED. NO NONVERBAL INDICATORS OF PAIN. WILL CONT. TO MONITOR.
[2017-05-02 05:23] LABS: ABSOLUTE LYMPHOCYTES 0.4 thou/uL (0.8-5.3); ABSOLUTE NEUTROPHILS 11.7 thou/uL (1.6-8.1); BASOPHILS 0.1 %; LYMPHOCYTES 3.2 %; MCV 87.5 fL (80.0-100.0); MONOCYTES 7.6 %; MPV 8.8 fl. (7.2-11.1); NUCLEATED RBCS 0 /100WBC; PLATELET COUNT* 259 thou/uL (150-400); POLYS 89.1 %; RDW-CV 15.9 % (10.5-14.5); WBC 13.2 thou/uL (4.0-11.0)
[2017-05-02 05:36] LABS: CALCIUM 8.9 mg/dL (8.5-10.1); CREATININE 0.9 mg/dL (0.6-1.3); POTASSIUM 4.4 mmol/L (3.5-5.1)
--- NOTE | 2017-05-02 10:32 | NUR ---
Following through dc. Consult received regarding possible need for hospice at dc. Left VM for Pt's jamesrMei. Contacted Karlo, at [facility], they do not have any LTC beds available, able to accept Pt back for skilled, if needed. Following.
--- NOTE | 2017-05-02 13:30 | NUR ---
PT DROWSY THIS AM. PT PULLED OUT IV. PT INCONTINENT OF URINE. SPOKE TO DR ABOUT DELAYING EGD UNTIL PT IS AWAKE AND ORIENTED TO PREVIOUS BASELINE. DR AGREES. PACU CALLED AND NOTIFED EGD NOT APPROPRIATE FOR TODAY. NEW IV PLACED IN RIGHT FOREARM.
--- NOTE | 2017-05-02 18:14 | NUR ---
PT MORE AWAKE THIS EVENING. PT ALERT TO PERSON AND PLACE. NUTRITION ENCOURAGED. PT PICKING AT IV SITE. PT PICKING AT SKIN.
--- NOTE | 2017-05-02 18:35 | NUR ---
FAMILY REPORTS PT WAS TO HAVE MARINA OUT FROM [facility] TODAY. ATTENTION DR. ROMERO DISCUSS WITH FAMILY.
--- NOTE | 2017-05-03 02:45 | NUR ---
Pt restful, but impulsive at times. Pulled off monitor leads 3-4 times so far this shift. Also dc'd IV once. New IV placed, wrapped with coband to help prevent pt from picking at it. Remains on 6L O2 per [facility]; breath snds slightly coarse and wheezy. VSS. Medicated for c/o of back pain at HS. Bedrest. Will continue to monitor.
[2017-05-03 04:00] VITALS: BP 150/81
[2017-05-03 05:10] LABS: HEMATOCRIT 27.5 % (37.0-47.0); HEMOGLOBIN 8.8 gm/dL (12.0-15.0); MCH 28.2 pg (26.0-34.0); MCHC 32.1 g/dL (28.0-37.0); MCV 87.9 fL (80.0-100.0); MPV 8.6 fl. (7.2-11.1); RBC 3.13 mil/uL (4.20-5.00); RDW-CV 15.8 % (10.5-14.5); WBC 11.4 thou/uL (4.0-11.0)
[2017-05-03 05:41] LABS: ALBUMIN 2.7 g/dL (3.4-5.0); CALCIUM 8.7 mg/dL (8.5-10.1); MAGNESIUM 2.2 mg/dL (1.8-2.4); POTASSIUM 4.6 mmol/L (3.5-5.1); TOTAL BILIRUBIN 0.2 mg/dL (<0.1-1.0); TOTAL PROTEIN 5.4 g/dL (6.4-8.2)
[2017-05-03 08:05] VITALS: BP 141/103
--- NOTE | 2017-05-03 08:34 | NUR ---
PT 88% ON 6L NC. PT TITRATED TO 7L AND SATTING AT 93-94%. RT NOTIFIED OF CHANGE.
--- NOTE | 2017-05-03 08:46 | NUR ---
[facility] can accept Pt back skilled, they will have a bed available on Tuesday
--- NOTE | 2017-05-03 09:50 | NUR ---
RN FED PT BREAKFAST. PT ATE 1/2 PANCAKE, 1 SAUSAGE, 100 ML MILK, 120 ML ORANGE JUICE, 5% OF CREAM OF WHEAT.
[2017-05-03 11:56] VITALS: BP 178/73
[2017-05-03 16:57] VITALS: BP 138/76
--- NOTE | 2017-05-03 18:19 | NUR ---
PT FEEDING SELF THIS EVENING. PT WENT FOR VIDEO SWALLOW AND ON REGULAR DIET WITH CLEAR LIQUIDS. ORTHO SAW PT AND TOOK OUT MARINA. TUBA HAND SHAKER PLACED ON RIGHT UPPER ARM PT PICKING AT SKIN.
--- NOTE | 2017-05-03 18:20 | NUR ---
PT HAD SMALL BM WITH MUCOUS THIS SHIFT. LEFT MESSAGE FOR GI NURSE PRACTICIONER THAT [facility] BELIEVES PT WILL BE READY FOR EGD TOMORROW.
[2017-05-03 19:45] VITALS: BP 136/83
[2017-05-04] VITALS (8 sets, daily range): BP systolic 147–177; BP diastolic 59–107
--- NOTE | 2017-05-04 05:06 | NUR ---
Pt on 7L O2 per [facility] at start of shift. SaO2 98%, O2 decreased to 6L. After midnight, pt c/o SOA during a turn. SaO2 90-91% on 6L; O2 increased back to 7L. Pt's SOA resolved soon afterward. Pt is more oriented and engaging with interactions compared to night before. Pt has not pulled her monitor patches off during this shift, but continues to scratch and pick at her skin at times. NPO since TN for possible EGD today. HR 90s-110s overnight. BP 177/96 at TN, but 130s-140s/70s-80s otherwise. Will continue to monitor.
[2017-05-04 05:23] LABS: HEMATOCRIT 28.3 % (37.0-47.0); HEMOGLOBIN 9.1 gm/dL (12.0-15.0); MCH 28.4 pg (26.0-34.0); MCHC 32.1 g/dL (28.0-37.0); MCV 88.5 fL (80.0-100.0); MPV 8.5 fl. (7.2-11.1); RBC 3.19 mil/uL (4.20-5.00); RDW-CV 15.9 % (10.5-14.5)
[2017-05-04 05:45] LABS: CALCIUM 8.6 mg/dL (8.5-10.1); CREATININE 0.8 mg/dL (0.6-1.3)
--- NOTE | 2017-05-04 11:35 | NUR ---
RECEIVED PT CARE 0700. PT IS ALERT AND ORIENTED X4. FORGETFUL AND CONFUSED AT TIMES. VSS. 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 O2 SAT 97% ON 5L NC. REPOSITIONED FOR COMFORT. INCONTINENT OF BLADDER THIS AM. PATIENT WILL ATTEMPT TO USE THE BED YU AT TIMES, BUT STATES SOMETIMES IT COMES ON TOO QUICKLY AND SHE CANNOT MAKE IT. AM ASSESSMENT CHARTED. MEDS PER MAR. PATIENT PULLED OUT HER SALINE LOCK IN HER RIGHT WRIST. NEW IV STARTED IN PATIENTS RIGHT AC PER THIS RN. LASIX GIVEN IV X1 DOSE THIS AM. GOOD URINE OUTPUT, BUT UNABLE TO MEASURE DUE TO PATIENTS INCONTINENCE. BED BATH GIVEN PER NURSING STAFF AND LINENS CHANGED. NPO FOR EGD TODAY. GI ON FLOOR AND THEY ARE PLANNING TO FOLLOW THROUGH WITH THE EGD TODAY. THIS RN CALLED AND LEFT VOICEMAIL WITH PATIENTS DAUGHTER SERENE WHO IS THE PATIENTS DPOA. WAITING FOR A RETURN CALL TO GET CONSENT SIGNED. BED ALARM ON. CALL LIGHT WITHIN REACH. WILL CONTINUE TO MONITOR.
--- NOTE | 2017-05-04 15:44 | NUR ---
Nutrition: Pt assessed for LOS. Had EGD today - hiatla hernia present. Diet advanced to 2gm Na. Pt has h/o dementia, anemia, COPD. Albumin 2.7, prealb 27.8, BG 150-200s. No nutrition interventions needed today. Hopeful for good po intake. GOAL: better BG control. Low risk.
--- NOTE | 2017-05-04 18:30 | NUR ---
PT PROGRESSING TOWARDS GOALS. UP TO THE EDGE OF BED FOR DINNER. TOLERATED PT/OT WELL THIS AFTERNOON. POST EGD VITALS STABLE. UPDATED PATIENTS DAUGHTER ON PLAN OF CARE AND EGD RESULTS. PATIENT INCONTINENT OF URINE MULTIPLE TIMES THIS SHIFT. REPOSITIONED FOR COMFORT. PAIN CONTROLLED WITH PRN PAIN MEDICATIONS. PATIENT CONTINUES TO WEAR O2 AT 5L NC. BED ALARM ON. HOURLY ROUNDING CHARTED. CALL LIGHT WITHIN REACH. WILL CONTINUE TO MONITOR.
[2017-05-05] VITALS: BP 167/99
[2017-05-05 04:00] VITALS: BP 167/99
--- NOTE | 2017-05-05 04:36 | NUR ---
ASSUMED CARE OF PT AT 1930, NURSING ASSESSMENT COMPLETED AT START OF SHIFT, PT VOICED NO COCNERNS, HOURLY ROUNDING COMPLETED, Q2H REPOSITIONING COMPLETED, PT WEARING CAM BOOT TO LEFT FOOT. ON TELE MONITOR, TRACING AFIB THIS SHIFT. DENIES PAIN, PT FORGETFUL AND CONFUSED AT TIMES. PT RESTED WELL THIS SHIFT, CALL LIGHT WITHIN REACH.
[2017-05-05 05:33] LABS: HEMATOCRIT 31.5 % (37.0-47.0); HEMOGLOBIN 10.3 gm/dL (12.0-15.0); MCHC 32.7 g/dL (28.0-37.0); MCV 88.6 fL (80.0-100.0); MPV 8.2 fl. (7.2-11.1); NUCLEATED RBCS 0 /100WBC; PLATELET COUNT* 209 thou/uL (150-400); RBC 3.56 mil/uL (4.20-5.00); RDW-CV 15.9 % (10.5-14.5); WBC 8.5 thou/uL (4.0-11.0)
[2017-05-05 05:51] LABS: ALBUMIN 2.8 g/dL (3.4-5.0); CALCIUM 8.5 mg/dL (8.5-10.1); CREATININE 0.8 mg/dL (0.6-1.3); MAGNESIUM 1.9 mg/dL (1.8-2.4); POTASSIUM 3.3 mmol/L (3.5-5.1); TOTAL BILIRUBIN 0.4 mg/dL (<0.1-1.0); TOTAL PROTEIN 5.8 g/dL (6.4-8.2)
[2017-05-05 05:55] LABS: ABSOLUTE LYMPHOCYTES 0.4 thou/uL (0.8-5.3); ABSOLUTE MONOCYTES 0.3 thou/uL (0.0-1.2); ABSOLUTE NEUTROPHILS 7.7 thou/uL (1.6-8.1); MYELOCYTES 1 %; PLATELET ESTIMATE ADEQUATE
[2017-05-05 05:56] LABS: ANISOCYTOSIS 1+; POIKILOCYTOSIS 1+; POLYCHROMASIA Occasional
[2017-05-05 07:30] VITALS: BP 158/97
--- NOTE | 2017-05-05 08:17 | CON ---
[address] [address] CONSULTATION Name: JUSTYN CASTRO Room: [address] IN .R.#: [id number] Admission: 04/27/17 Attend Phys: Alverto Buchanan MD Discharge: Date of : 37 Report #: [id number] THIS REPORT FOR: //name// CC: Alverto Buchanan Servando Buckner DATE OF SERVICE: 05/04/2017 REFERRING PHYSICIAN: Alverto Buchanan MD CHIEF COMPLAINT: The patient gives me a history stating she has been experiencing neck and back pain. Her initial admission was a result of increased shortness of breath. She is a patient who was transferred from the rehab center, I believe [facility]. She had been hospitalized not too long ago for an injury that she sustained in her ankle. The procedure was performed, I believe, on around 04/11/2017. Procedure was a bimalleolar fracture of the left ankle. She had an uneventful postoperative course, was transferred to rehab at [facility]. The patient had worsening shortness of breath and as a result, was transferred to [facility]. PAST MEDICAL HISTORY: Positive for recent ankle surgery as a result of her fracture on the left side, history of chronic obstructive airways disease, chronic bronchitis, dementia. She has had femoral neck fracture and subsequent surgical repair. Additional past medical history is that of a pulmonary embolus in 2016. ALLERGIES: MORPHINE, QUINOLONES, AZITHROMYCIN, ERYTHROMYCIN, FELDENE, FENTANYL, CODEINE, SULFAMETHOXAZOLE. FAMILY HISTORY: Noncontributory. REVIEW OF SYSTEMS: Reference H and P. Other system review negative. CURRENT MEDICATIONS: Solu-Medrol, vancomycin, Zosyn, , Apresoline p.r.n., stool softener, subQ Lovenox, DuoNeb aerosol treatments, lisinopril. PHYSICAL EXAMINATION: VITAL SIGNS: Blood pressure 166/94, respiratory rate 20 and nonlabored, pulse rate 123, temperature 98.1 degrees. The patient's weight is 165 pounds. GENERAL APPEARANCE: She is responsive. She will open her eyes, communicate. She answers questions in a short fashion. HEAD: Atraumatic. EYES: Pupils are round, equal, reactive. ORAL CAVITY: Moist. No lesions. CHEST: Reveals scattered wheezes throughout all lung dickerson, markedly diminished breath [place] [address] CONSULTATION Name: JUSTYN CASTRO Room: [address]#: [id number] Admission: 04/27/17 Attend Phys: Alverto Buchanan MD Discharge: Date of : 37 Report #: [id number] CARDIOVASCULAR: Reveals distant heart tones, regular rhythm. S1 and S2 are normal. ABDOMEN: Obese without organomegaly, no tenderness. EXTREMITIES: Trace of edema. She has a stabilizing boot on the left foot. SKIN: Warm, dry, no rash. NEUROLOGIC: She is able to move all 4 extremities. LABORATORY DATA: Today, her electrolytes reveal sodium 140, potassium 4.0, chloride 104, CO2 of 33, BUN of 20, creatinine 0.8, EGFR 69. Her admission proBNP was 497 with a troponin less than 0.06. Hemoglobin and hematocrit today 9 and 28 with a white count of 11,000. Influenza A/B screen antigen showed no detection. On 04/17, arterial blood gas revealed a pH 7.39, pCO2 of 48, pO2 of 91 while on 3 liters nasal cannula. CTA of the chest on admission: No evidence of pulmonary emboli, patchy ground-glass opacities in the left lower lung field, moderate centrilobular emphysematous changes in the upper lung dickerson. Bilateral trace of effusions of a very small nature, greater on the right than the left. CT of the brain did not reveal any acute intracranial injury. Video swallow study performed on 05/03 did not reveal any evidence of aspiration. ASSESSMENT: 1. Exacerbation of chronic obstructive pulmonary disease. 2. Status post ankle fracture. 3. History of dementia. RECOMMENDATION: Continue aspiration precautions. We will maximize her bronchodilator therapy in view of the fact she is still bronchospastic. We will increase her steroids, increase the frequency of her DuoNeb aerosol treatment and add Brovana. The patient is a DNR/DNI. <ELECTRONICALLY SIGNED> By: Wm Allred MD 05/05/17 0817 [id number] Brock MD /nt
--- NOTE | 2017-05-05 10:32 | NUR ---
RECEIVED PT CARE 0700. PT IS ALERT AND ORIENTED X3-4. FORGETFUL AND CONFUSED AT TIMES. 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 COMPLAINS OF BACK PAIN THIS AM AND IS MORE ANXIOUS TODAY THAN YESTERDAY. REFUSING TO SIT UP AT A 90 DEGREE ANGLE AND EAT BREAKFAST. AM ASSESSMENT CHARTED. MEDS PER MAR. REPOSITIONED FOR COMFORT. DISCUSSED PLAN OF CARE WITH DR KONG AND DR VALLE. PLANNING FOR DC TOMORROW BACK TO SNF IF PATIENT STABLE. KEEPING CALL LIGHT WITHIN REACH. WILL CONTINUE TO MONITOR.
[2017-05-05 12:15] VITALS: BP 158/100
--- NOTE | 2017-05-05 14:01 | S ---
[place] [address] SURGICAL PATH RPT PROCEDURE Name: FAINA BONEIA Colleen Room: [address] IN [facility].#: [id number] Admission: 04/27/17 Date of : 37 Discharge: Report #: [id number] Path Case #: [id number] PATHOLOGY REPORT COLLECTION DATE: 05/04/2017 RECEIVED DATE: 05/04/2017 SUBMITTING PHYS: Dr. Kirby Vo OTHER PHYS: Dr. 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 (LEIGHANN:[facility]; 05/05/2017) COMMENT: Special stain: H. pylori immuno PATHOLOGIST: Farzad Ponce M.D. REPORT ELECTRONICALLY SIGNED BY: Farzad Ponce M.D. DATE/TIME: 05/05/2017 14:00 * * * * * * * * * * * * GROSS PATHOLOGY: Received in formalin labeled "Slime Bone and antral biopsy for H. pylori," are two segments of ferguson soft tissue measuring 0.3 cm in maximum dimension each. The specimen is submitted entirely in cassette A1. ([facility]; 05/04/2017) CLINICAL HISTORY: None provided INITIAL CPT CODE(S): A; 66938, 61237 Professional services performed by [facility] at [facility], [address] [place] [address]. Technical services performed by [facility] at [address] [place] [address], [address], [place] [address]. [facility] [address] [place] [address] SURGICAL PATH RPT PROCEDURE Name: SLIME BONE Room: [address] IN M.R.#: [id number] Admission: 04/27/17 Date of : 37 Discharge: Report #: [id number] Path Case #: [id number] [address] PHONE: [phone] DIRECTOR: Raul Calvo M.D. * * * END OF REPORT * * *
[2017-05-05 16:00] VITALS: BP 134/78
[2017-05-05 19:46] VITALS: BP 153/95
[2017-05-06 00:02] VITALS: BP 164/90
[2017-05-06 04:00] VITALS: BP 141/79
--- NOTE | 2017-05-06 05:16 | NUR ---
Pt on 3L O2, SaO2 mid-90s. Afib, rate 90s-110s; up to 130s at times. VSS, though BP 164/90 at 2330. Incontinent of bowel & bladder. Pt used call light multiple times for various desires. Will continue to monitor.
[2017-05-06 05:25] LABS: ABSOLUTE LYMPHOCYTES 0.2 thou/uL (0.8-5.3); ABSOLUTE MONOCYTES 0.6 thou/uL (0.0-1.2); ABSOLUTE NEUTROPHILS 9.6 thou/uL (1.6-8.1); BASOPHILS 0.1 %; HEMATOCRIT 30.9 % (37.0-47.0); HEMOGLOBIN 10.1 gm/dL (12.0-15.0); LYMPHOCYTES 2.1 %; MCH 29.4 pg (26.0-34.0); MCHC 32.7 g/dL (28.0-37.0); MCV 90.2 fL (80.0-100.0); MONOCYTES 5.6 %; MPV 8.7 fl. (7.2-11.1); NUCLEATED RBCS 0 /100WBC; PLATELET COUNT* 204 thou/uL (150-400); POLYS 92.2 %; RBC 3.43 mil/uL (4.20-5.00); RDW-CV 16.2 % (10.5-14.5); WBC 10.4 thou/uL (4.0-11.0)
[2017-05-06 05:45] LABS: ALBUMIN 2.7 g/dL (3.4-5.0); CALCIUM 8.7 mg/dL (8.5-10.1); CREATININE 0.8 mg/dL (0.6-1.3); POTASSIUM 3.8 mmol/L (3.5-5.1); TOTAL BILIRUBIN 0.4 mg/dL (<0.1-1.0); TOTAL PROTEIN 5.6 g/dL (6.4-8.2)
[2017-05-06 05:59] LABS: PREALBUMIN 32.6 mg/dL (18.0-35.7)
[2017-05-06 08:05] VITALS: BP 160/82
--- NOTE | 2017-05-06 11:28 | NUR ---
ASSUMED PT CARE 0730. PT ALERT TO PERSON, PLACE AND TIME. PT FEEDING SELF. PT PREFERS TO EAT LAYING DOWN. BED LOCKED THAT WAY PT CANNOT LAY DOWN WHILE EATING. PT CALLED OUT FREQUENTLY TO ASK TO LAY DOWN. PT EDUCATED CAN LAY DOWN 30 MINUTES AFTER FINISHING BREAKFAST. PT PICKING AT SKIN. HR IN 120'S - 160'S. NOTIFIED ORDERS RECIEVED. PT HAD SOFT BROWN BM THIS AM STOOL SAMPLE OBATINED AND SENT TO LAB.
[2017-05-06 12:25] VITALS: BP 153/77
--- NOTE | 2017-05-06 14:02 | NUR ---
Spoke with Shazia from [facility], they will have a bed available tomorrow, if Pt is ready to dc. Spoke with bassam, anticipate dc tomorrow. Following.
[2017-05-06 16:11] VITALS: BP 150/78
--- NOTE | 2017-05-06 17:46 | NUR ---
PT HAS HAD 3 -4 STOOLS THIS SHIFT. PT PULLED OUT IV THIS EVENING. PT PICKING AT SKIN AND LINES CHANGED 2-3 X'S THIS SHIFT DUE TO BLOOD. PT GIVEN TRAMADOL 1 TIME THIS SHIFT. HR IN 80'S UNTIL 1715 AND HR 105-115. RN TO GIVEN PO CARDIZEM.
--- NOTE | 2017-05-06 18:54 | NUR ---
2 MEPILEX APPLIED TO RIGHT CHEST/ SHOULDER. 4X4 AN KURLEX APPLIED TO RIGHT AC AND RIGHT FOREARM. MEPILEX APPLIED TO RIGHT KNEE AND RIGHT LEG. KURLEX AND 4X4 APPLIED TO LEFT FOREARM.
[2017-05-06 20:00] VITALS: BP 157/72
[2017-05-07] VITALS: BP 149/59
[2017-05-07 04:00] VITALS: BP 132/81
--- NOTE | 2017-05-07 05:22 | NUR ---
PT CARE ASSUMED AFTER REPORT. ASSESSMENT COMPLETE. AFIB ON MONITOR. O2 3L NC. INCONT OF B/B. CARMEN CARE AND BED CHANGES PRN. BOOT TO LLE. PT REMOVES BANDAGES AND PICKS SCABS OFF. DENIES PAIN. CALL LIGHT IN REACH. BED IN LOWEST POSITION. SLOW TO PROGRESS TOWARDS GOALS.
[2017-05-07 10:00] VITALS: BP 120/75
--- NOTE | 2017-05-07 10:06 | NUR ---
PT HR IN 150'S AFIB. CALLED AND ASKED TO RECONSULT CARDIOLOGY. CARDIOLOGY RECONSULTED. RECEIVED ORDER TO STOP CARVEDILOL AND START METOPROLOL XL 25 MG BID. PT SAT IN BSC THIS AM. HAD SMALL BM. PT SITTING IN RECLINER WITH FEET ELEVATED.
--- NOTE | 2017-05-07 10:53 | NUR ---
Pt not ready to dc today, cardiology consult placed and pending. Following.
[2017-05-07 12:00] VITALS: BP 123/74
--- NOTE | 2017-05-07 15:32 | NUR ---
PT SAT IN RECLINER FOR ABOUT 1 HOUR. PT HAS USED BSC 3X'S THIS SHIFT. PT HAS HD 3 BMS THIS SHIFT. IMPROVED HR CONTROL WITH NEW MEDICATIONS HR IN 90'S. WILL CONTINUE TO MONITOR.
[2017-05-07 16:00] VITALS: BP 146/83
[2017-05-07 18:15] LABS: BE 3.1 mmol/L (-2 to +3); HCO3 27.8 mmol/L (22.0-26.0); PCO2 42.6 mmHg (35.0-45.0); PO2 88.1 mmHg (75.0-100.0); pH 7.432 (7.340-7.450)
--- NOTE | 2017-05-07 18:47 | NUR ---
PT HR MAINTAINING IN 90'S. PT EATING MEALS. AWAKE/ORIENTED. FOREGETFUL.
[2017-05-07 20:00] VITALS: BP 145/97
[2017-05-08] VITALS (7 sets, daily range): BP systolic 129–171; BP diastolic 72–99
--- NOTE | 2017-05-08 10:42 | NUR ---
ASSUMED PT CARE 0730. PT A/O X'S 4 FORGETFUL. PT SAT IN RECLINER FOR 30 MINUTES. PT USED BSC. PT HAD VERY SMALL BM. PT ASKING TO GO TO BED TO HAVE BM. PT EDUCATED TO CONTINUE TO BSC. PT UP WITH 2, WALKER, GAIT BELT. PT NEEDS REASSURANCE IN USING WALKER. PT EXPRESSES FEELING WEAK. REPORTED TO PASTEURIZING SUPERVISOR HR IN 90'S - 110 AND THAT HR WENT TO 175 WHEN COMING OFF BSC. CARIOLOGIST TO ADJUST MEDICATOINS. AWAITING ORDERS.
--- NOTE | 2017-05-08 12:25 | NUR ---
UPDATED FAMILY ON PT STATUS. FAMILY REPORTS PT'S OXYGEN BASELINE IS 2L NC AND HAS BEEN FOR ABOUT 1 YEAR. PT CURRENTLY ON 2L NC.
--- NOTE | 2017-05-08 18:46 | NUR ---
PT SAT IN CHAIR THIS EVENING FOR ABOUT 1 1/2 HOURS. PT USED BSC THIS EVENING AND WAS CONTINENT OF URINE.
--- NOTE | 2017-05-08 18:48 | NUR ---
PT BLOOD GLUCOSE IN 200'S. ASKED DR FOR INSULIN. ORDERS RECEIVED. PT CONTINUES TO BE ON 2L NC.
--- NOTE | 2017-05-08 19:05 | NUR ---
ATTENTION CASE MANAGEMENT: DTR BYRON CAME TO SEE PT TODAY. DTR WANTS TO DISCUSS PT POSSIBLY GOING TO SNF INSTEAD OF REHAB.
[2017-05-09] VITALS: BP 141/73
--- NOTE | 2017-05-09 02:47 | NUR ---
PT ALERT ORIENTED TO SELF AND PLACE. L BOOT ON FOR ANKLE FX. CALLS OUT FREQUENTLY AT TIMES. TELEMETRY SHOWS A FIB. PT PICKS AT SKIN UNTIL SOARS FORM. O2 AT 2 LITERS NC. INCONTINENT OF URINE. WILL CONTINUE TO MONITOR.
[2017-05-09 04:00] VITALS: BP 160/80
[2017-05-09 08:15] VITALS: BP 158/83
--- NOTE | 2017-05-09 09:14 | NUR ---
ASSUMED CARE OF PT THIS AM AROUND 0715- WORKERS COMPENSATION DEFENSE ATTORNEY IN PLACE ORDERED, TRACING A-FIB, RATE CONTROLED- UPON ASSESSMENT PT NOTED TO BE RESTING IN BED, EYES CLOSED- A&O X2 WITH NOTED CONFUSION-INCONTINET OF BOWEL AND BLADDER- Q 2HOUR TURNS IN PLACE INDICATED- EXTENSIVE ASSIST X1-2 WITH TRANSFERS- VSS, O2 SAT 985 ON 2L VIA NC- PT NOTED TO HAVE LABORED BREATHING THIS AM AND REPORTS TO NOT BE ABLE TO BREATH- O2 SAT 98%- BREATHING EXERCISES ENCOURAGED TO HELP SLOW BREATHING, PT ABLE TO CALM SELF ADN SLOW BREATHING WITH COACHING- ABDOMEN SOFT/ROUND/NON-TENDER, BS X4 QUADS- LAST BM REPORTED 05/08/17- TRACE BLE EDEAM NOTED- LLE WITH BOOT IN PLACE INDICATED R/T FX- SCATTERED SCABS R/T PICKING NOTED THROUGHOUT- PT GIVEN BATH THIS AM- IV NOTED TO LEFT FA INTACT ANS SL- BS ORDERED, THIS AM NOTED TO BE 89-PT REFUSED BREAKFAST THIS AM-CALL LIGHT AND PERSONAL BELONGINGS WITH IN REACH- HOURLY ROUNDS IN PLACE R/T SAFETY/NEEDS- ALL NEEDS MET AT THIS TIME-WCTM
[2017-05-09] MEDS ORDERED: NYSTATIN PO (10:24)
[2017-05-09] MEDS ORDERED: SINGULAIR 10 MG10 M1 PO (10:25)
[2017-05-09] MEDS ORDERED: LOPRESSOR25 PO (10:26)
[2017-05-09] MEDS ORDERED: ALBUTEROL SULFAT2 MG PO (10:31)
[2017-05-09] MEDS ORDERED: BROVANA15 MCG/2 M INH (10:32)
[2017-05-09] MEDS ORDERED: CARDIZEM CD240 MG PO (10:33)
[2017-05-09 10:34] VITALS: BP 158/83
--- NOTE | 2017-05-09 10:37 | NUR ---
Pt is charging to [facility] SN[facility] today, facility will picking machine operator at 230pm. Updated nurse. Left VM for Pt's dtr regarding disposition. Nurse report number provided, . Chart copied. Faxed dc orders and updated clinical info.
[2017-05-09 12:00] VITALS: BP 139/79
[2017-05-09] MEDS ORDERED: DOXYCYCLINE 10100 MG PO (12:47)
--- NOTE | 2017-05-09 14:25 | NUR ---
ORDERS RECIVED FOR OKAY FOR PT TO BE D/C'D TO SNF THIS SHIFT PER - CM HERE TO SET UP FOR TRANSPORT VIA W/C VAN AT 1430- NEW ORDERS NOTED FOR CHEST X-RAY AND X1 DOSE IV LASIX PER PULMONARY DR. VALLE THIS AM- LASIX GIVEN PRESCIBED, WITH GOOD URINE OUTPUT NOTED, CHEST X-RAY COMPLETED WITH RESULTS CALLED TO - ORDERS NOTED FOR DOXY 100MG PO BID, AND OKAY TO D/C LONG O2 SAT GOOD, AND F/U X-RAY TO BE COMPLETED IN 10 DAYS- O2 SAT NOTED AT 98% ON 2L VIA NC- 1ST DOSE OF DOXY GIVEN PRIOR TO D/C- IV TO LEFT FA D/C'D ALONG WITH HEAD BONE GRINDER PRIOR TO D/C- D/C TEACHING/EDUCATION GIVEN TO PT PRIOR TO D/C- REPORT CALLED TO [facility], WITH REPORT GIVEN TO USHA GTZ ALL QUESTIONS AND CONCERNS ADDRESSED- COMMUNICATION GIVEN ON NEW ABT DOXY AND NEEDED F/U CHEST X-RAY- BELONGINGS PACKED AND ACCOUNTED FOR PER TECH- PT DRESSED AND UP SITTING IN RTECLINER IN ROOM AWAITING TRANSPORTATION- ALL NEEDS MET AT THIS TIME-WCTM
--- NOTE | 2017-06-02 14:50 | CON ---
[address] [address] CONSULTATION Name: JUSTYN CASTRO Room: [address]R.#: [id number] Admission: 04/27/17 Attend Phys: Alverto Buchanan MD Discharge: 05/09/17 Date of : 37 Report #: [id number] THIS REPORT FOR: //name// CC: Alverto Buckner DO DATE OF SERVICE: 04/28/2017 REQUESTING PHYSICIAN: Alverto Buchanan MD PRIMARY CARE PHYSICIAN: Servando Buckner DO HISTORY OF PRESENT ILLNESS: This is an 81-year-old female who is well known to us as I had performed upper and lower endoscopy back in July of 2015 for anemia. The patient has had difficulty breathing at home and was brought to hospital. She was found to be severely anemic, requiring blood transfusion. She is currently lying in bed and awaiting for blood transfusion. She denies any abdominal pain, nausea, vomiting, dyspepsia and GERD. The patient also has had recent lower extremity fracture. ALLERGIES: Significant to MORPHINE, CEFPROZIL, CIPROFLOXACIN, CLARITHROMYCIN, CODEINE, ERYTHROMYCIN, FENTANYL, PIROXICAM, TRIMETHOPRIM and SULFAMETHOXAZOLE. MEDICATIONS: Please refer to hospital MAR. SOCIAL HISTORY: The patient lives at home. Her daughter appears to be the main oracle business analyst. The patient has a history of tobaccoism, but quit a year ago. She will occasionally have alcoholic beverage. FAMILY HISTORY: Noncontributory. PHYSICAL EXAMINATION: VITAL SIGNS: Reveals blood pressure of 143/54, respirations 23, pulse 92, temperature 98.2. LUNGS: Clear. CARDIOVASCULAR: Regular. ABDOMEN: Large, soft, mildly tender to palpation in periumbilical region. Bowel sounds are positive. LABORATORY DATA: Reveal sodium of 134, potassium 4.5, BUN is 13, creatinine 0.9, glucose 150, AST is 19, ALT 22, alkaline phosphatase 182. WBC is 6.6 with hemoglobin of 7.0 and platelet of 259. IMAGING: Chest x-ray was obtained which showed no acute [place] [address] CONSULTATION Name: GLORIAJUSTYN Colleen Room: [address]#: [id number] Admission: 04/27/17 Attend Phys: Alverto Buchanan MD Discharge: 05/09/17 Date of : 37 Report #: [id number] of the chest showed moderate central lobular emphysema with trace bilateral effusion. ASSESSMENT AND PLAN: This is an 81-year-old female who presents with shortness of air secondary to severe anemia. The patient also has COPD and used to smoke until a year ago. We had scoped her back in July of 2015 where there was evidence of moderate sized hiatal hernia with localized peripyloric erosion, which was biopsied. There was also evidence of rectal prolapse that the patient had since repaired. She had mild hemorrhoids and diverticulosis as well. We will go ahead and consider performing upper endoscopy since she had a moderate size hiatal hernia and erosions. I will make further recommendation based on the upper endoscope finding. We will continue monitoring her hemoglobin after she is transfused with 1 unit of packed RBC. <ELECTRONICALLY SIGNED> By: Christy Castellanos MD 06/02/17 1450 [id number] Castellanos MD /nt
== END 2017-05-09 15:04 | DRG 177 ==
LOC: M.ERS 11:03 → M.TBA-ER 12:06 → M.2W 12:06
PROVIDERS: Family Medicine; Internal Medicine; Internal Medicine Gastroenterology; ADMIT Internal Medicine
PROC: 30233N1 Transfusion of Nonautologous Red Blood Cells into Peripheral Vein, Percutaneous Approach (ICD-10-PCS; principal; 2017-04-28)
PROC: 0DB68ZX Excision of Stomach, Via Natural or Artificial Opening Endoscopic, Diagnostic (ICD-10-PCS; 2017-05-04)
DX: J69.0 Pneumonitis due to inhalation of food and vomit (principal); J96.01 Acute respiratory failure with hypoxia; G93.40 Encephalopathy, unspecified; J44.1 Chronic obstructive pulmonary disease with (acute) exacerbation; J44.0 Chronic obstructive pulmonary disease with (acute) lower respiratory infection; F17.210 Nicotine dependence, cigarettes, uncomplicated; K21.9 Gastro-esophageal reflux disease without esophagitis; I48.91 Unspecified atrial fibrillation; I08.0 Rheumatic disorders of both mitral and aortic valves; D50.9 Iron deficiency anemia, unspecified; M19.90 Unspecified osteoarthritis, unspecified site; Z96.642 Presence of left artificial hip joint; F03.90 Unspecified dementia, unspecified severity, without behavioral disturbance, psychotic disturbance, mood disturbance, and anxiety; Z87.81 Personal history of (healed) traumatic fracture; Z98.49 Cataract extraction status, unspecified eye; Z86.711 Personal history of pulmonary embolism; Z79.01 Long term (current) use of anticoagulants; Z79.82 Long term (current) use of aspirin; Z79.899 Other long term (current) drug therapy; Z88.6 Allergy status to analgesic agent; Z88.1 Allergy status to other antibiotic agents; Z88.5 Allergy status to narcotic agent; Z88.2 Allergy status to sulfonamides; Z88.8 Allergy status to other drugs, medicaments and biological substances; Z72.89 Other problems related to lifestyle